=== PATIENT | male | born 1945 | race Caucasian/White ===

== ENCOUNTER 2020-07-21 10:28 | Emergency (ER) | payer OTHER ==
[~2020-07-21] VITALS: Ht 180.3 cm; Wt 86.4 kg
[2020-07-21 10:33] VITALS: BP 149/106; Ht 180.3 cm; Wt 86.4 kg
[2020-07-21 10:56] LABS: BASOPHILS 0.8 % (0-2); EOSINOPHILS 1.4 % (0-7); HEMATOCRIT 46.8 % (42.0-54.0); IMMATURE GRANULOCYTES 0.4 % (0-5); LYMPHOCYTES 16.9 % (15-50); MCH 27.4 pg (26.0-34.0); MCHC 34.2 g/dL (31.0-37.0); MCV 80.1 fL (80.0-100.0); MEAN PLATELET VOLUME 9.7 fL (7.4-10.4); NEUTROPHIL ABS# 5.51 10x3/uL (1.78-5.38); NEUTROPHILS 71.5 % (40-80); PLATELET COUNT 166 10x3/uL (130-400); RBC 5.84 10x6/uL (4.20-6.10); RDW 17.1 % (11.5-14.5); WBC 7.7 10x3/uL (4.8-10.8)
[2020-07-21 11:17] LABS: CALC OSMOLALITY 279 mosm/kg (275-300); CALCIUM 9.7 mg/dL (8.5-10.1); CARBON DIOXIDE 24.8 mmol/L (21.0-32.0); CHLORIDE - SERUM 105 mmol/L (98-107); GLUCOSE 93 mg/dL (74-106); POTASSIUM - SERUM 4.4 mmol/L (3.5-5.1); SODIUM 140 mmol/L (136-145); UREA NITROGEN 14 mg/dL (7-18); eGFR NON AFRICAN AMERICAN 77 mL/min (90-120)
[2020-07-21 11:22] LABS: APTT 52.3 SECONDS (22.8-39.4); INR 3.04 (0.85-1.17); PROTIME 29.3 SECONDS (11.6-15.0)
[2020-07-21 11:26] LABS: ALBUMIN 4.1 g/dL (3.4-5.0); ALKALINE PHOSPHATASE 62 U/L (30-120); ALT (SGPT) 43 U/L (10-68); MAGNESIUM - SERUM 2.2 mg/dL (1.8-2.4); PROTEIN - SERUM 7.6 g/dL (6.4-8.2); TROPONIN-I < 0.017 ng/mL (0.000-0.060)
[2020-07-21] MEDS ORDERED: CARDIZEM60 MG PO (12:06)
== END 2020-07-21 12:18 | disposition home or self-care (01) ==
LOC: D.ER 10:28
PROVIDERS: Emergency Medicine
DX: I48.92 Unspecified atrial flutter (principal); J44.9 Chronic obstructive pulmonary disease, unspecified